=== PATIENT | male | born 2000 | race Caucasian/White ===

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

== ENCOUNTER 2019-02-27 15:51 | Emergency (ER) | payer SELFPAY ==
[~2019-02-27] VITALS: Wt 64.4 kg
[2019-02-27 15:53] VITALS: BP 113/52
== END 2019-02-27 17:00 | disposition home or self-care (01) ==
LOC: ED 15:51
DX: S46.911A Strain of unspecified muscle, fascia and tendon at shoulder and upper arm level, right arm, initial encounter (principal); Z91.041 Radiographic dye allergy status; X50.0XXA Overexertion from strenuous movement or load, initial encounter; Y93.89 Activity, other specified; Y92.89 Other specified places as the place of occurrence of the external cause; Y99.9 Unspecified external cause status

== ENCOUNTER 2019-06-20 13:23 | Emergency (ER) | payer SELFPAY ==
[~2019-06-20] VITALS: Ht 177.8 cm; Wt 63.5 kg
[2019-06-20 13:33] VITALS: BP 118/64
== END 2019-06-20 16:54 | disposition home or self-care (01) ==
LOC: ED 13:23
DX: S83.91XA Sprain of unspecified site of right knee, initial encounter (principal); Z91.041 Radiographic dye allergy status; W01.0XXA Fall on same level from slipping, tripping and stumbling without subsequent striking against object, initial encounter; Y93.89 Activity, other specified; Y92.89 Other specified places as the place of occurrence of the external cause; Y99.8 Other external cause status

== ENCOUNTER 2020-03-06 17:33 | Emergency (ER) | payer SELFPAY ==
[~2020-03-06] VITALS: Ht 175.2 cm; Wt 63.5 kg
[2020-03-06 17:39] VITALS: BP 129/65
== END 2020-03-06 19:15 | disposition home or self-care (01) ==
LOC: ED 17:33
DX: H00.024 Hordeolum internum left upper eyelid (principal)

== ENCOUNTER 2021-10-12 22:29 | Emergency (ER) | payer SELFPAY ==
[~2021-10-12] VITALS: Ht 175.2 cm; Wt 65.8 kg
[2021-10-12 22:41] VITALS: BP 137/75
[2021-10-12 23:27] LABS: BASO % 0.5 % (0.0-1.0); EOS % 0.4 % (1.0-4.0); HEMATOCRIT 44.8 % (42.0-52.0); LYMPH # 1.9 10*3/uL (1.3-4.4); LYMPH % 22.8 % (27.0-41.0); MEAN CELL VOLUME 88.4 fl (80.0-94.0); MEAN CORPUSCULAR HGB 30.2 pg (27.0-31.0); MEAN CORPUSCULAR HGB CONC 34.2 g/dl (33.0-37.0); MEAN PLATELET VOLUME 10.5 fl (9.6-12.3); MONO # 0.7 10*3/uL (0.1-1.0); MONO % 7.9 % (3.0-9.0); NEUT # 5.6 10*3/uL (2.3-7.9); PLATELET COUNT AUTOMATED 253 10*3/uL (130-400); RED BLOOD COUNT 5.07 10*6/uL (4.50-5.90); RED CELL DISTRI WIDTH 13.2 % (0-14.5); WHITE BLOOD COUNT 8.3 10*3/uL (4.8-10.8)
[2021-10-12 23:42] LABS: ALKALINE PHOSPHATASE 60 U/L (45-117); BUN 16 mg/dl (7-24); CHLORIDE 109 mmol/L (98-107); CREATININE 0.82 mg/dL (0.70-1.30); LIPASE 104 U/L (73-393); SGOT/AST 10 IU/L (3-35); SGPT/ALT 16 U/L (12-78); SODIUM 140 mmol/L (136-145); TOTAL PROTEIN 7.1 gm/dL (6.4-8.2)
[2021-10-13 00:20] LABS: BILIRUBIN Negative (Negative); BLOOD Negative (Negative); CLARITY Clear (Clear); COLOR Yellow (Yellow); GLUCOSE Negative (Negative); KETONE Negative (Negative); LEUKO ESTERASE Negative (Negative); NITRITE Negative (Negative)
[2021-10-13 00:28] LABS: RBC 0-2 rbc/hpf (0-2)
== END 2021-10-13 02:06 | disposition home or self-care (01) ==
LOC: ED 22:29
PROVIDERS: Emergency Medicine
DX: R10.32 Left lower quadrant pain (principal); R11.0 Nausea